=== PATIENT | female | born 1975 | race Two or more races ===

== ENCOUNTER → 2024-10-03 | Outpatient (CLI) | payer OTHER, SELFPAY ==
[2024-10-03 08:46] LABS: Basophils % (Auto) 0 % (0-2.5); Eosinophils # (Auto) 0.1 Thou/mm3 (0.0-0.5); Eosinophils % (Auto) 3 % (0-10); Hematocrit 39.6 % (36.0-46.0); Hemoglobin 13.9 g/dL (12.0-16.0); Immature Granulocytes % (Auto) 0 % (0-0); Immature Granulocytes Auto 0.01 Thou/mm3 (0.00-0.00); Lymphocytes % (Auto) 26 % (10-50); Mean Corpuscular HGB Conc 35.1 g/dl (31.0-37.0); Mean Corpuscular Hemoglobin 30.7 pg (25.0-35.0); Mean Corpuscular Volume 87 fL (80-100); Monocytes # (Auto) 0.6 Thou/mm3 (0.0-0.8); Monocytes % (Auto) 16 % (0-12); Neutrophils # (Auto) 2.1 Thou/mm3 (1.8-7.7); Neutrophils % (Auto) 55 % (37-80); Nucleated Red Blood Cell % 0 /100 WBC (0); Platelet Count 278 Thou/mm3 (140-440); RDW Standard Deviation 40.8 fL (36.4-46.3); Red Blood Count 4.53 Miln/mm3 (4.00-5.20); White Blood Count 3.7 Thou/mm3 (3.6-11.0)
[2024-10-05 23:36] LABS: CD19 Percentage 19 % (6-29); CD19, Absolute 212 cells/uL (110-660); CD3 Percentage 56 % (57-85); CD3, Absolute 626 cells/uL (840-3060); CD3-CD16+CD56+ % 24 % (4-25); CD3-CD16+CD56+ (Abs) 279 cells/uL (70-760); CD4 Percentage 37 % (30-61); CD4, Absolute 414 cells/uL (490-1740); CD4/CD8 Ratio 2.06 (0.86-5.00); CD8 Percentage 18 % (12-42); CD8, Absolute 201 cells/uL (180-1170)
[2024-10-06 07:40] LABS: Lymphocytes, Absolute 1125 cells/uL (850-3900)
== END | disposition home or self-care (01) ==
LOC: COPL 06:49
PROVIDERS: PCP Family Medicine; Referring Provider Psychiatry & Neurology Neurology; Visit Provider Psychiatry & Neurology Neurology
DX: G35 Multiple sclerosis (principal)
CPT/HCPCS: 36415; 85025; 86355; 86357; 86359; 86360

== ENCOUNTER → 2025-01-02 | Outpatient (CLI) | payer OTHER, SELFPAY ==
[2025-01-02 13:17] LABS: Basophils # (Auto) 0.0 Thou/mm3 (0.0-0.2); Basophils % (Auto) 0 % (0-2.5); Eosinophils # (Auto) 0.1 Thou/mm3 (0.0-0.5); Eosinophils % (Auto) 2 % (0-10); Hematocrit 36.7 % (36.0-46.0); Hemoglobin 12.4 g/dL (12.0-16.0); Immature Granulocytes Auto 0.02 Thou/mm3 (0.00-0.00); Lymphocytes # (Auto) 0.9 Thou/mm3 (1.0-4.8); Lymphocytes % (Auto) 19 % (10-50); Mean Corpuscular HGB Conc 33.8 g/dl (31.0-37.0); Mean Corpuscular Hemoglobin 30.7 pg (25.0-35.0); Mean Corpuscular Volume 91 fL (80-100); Monocytes # (Auto) 0.6 Thou/mm3 (0.0-0.8); Monocytes % (Auto) 13 % (0-12); Neutrophils # (Auto) 3.2 Thou/mm3 (1.8-7.7); Neutrophils % (Auto) 65 % (37-80); Nucleated Red Blood Cell # 0.00 Thou/mm3 (0.00-0.00); Nucleated Red Blood Cell % 0 /100 WBC (0); Platelet Count 306 Thou/mm3 (140-440); RDW Standard Deviation 44.6 fL (36.4-46.3); Red Blood Count 4.04 Miln/mm3 (4.00-5.20); White Blood Count 4.9 Thou/mm3 (3.6-11.0)
[2025-01-04 22:04] LABS: CD19 Percentage 17 % (6-29); CD19, Absolute 172 cells/uL (110-660); CD3 Percentage 63 % (57-85); CD3, Absolute 625 cells/uL (840-3060); CD3-CD16+CD56+ % 19 % (4-25); CD3-CD16+CD56+ (Abs) 189 cells/uL (70-760); CD4 Percentage 45 % (30-61); CD4, Absolute 440 cells/uL (490-1740); CD4/CD8 Ratio 2.42 (0.86-5.00); CD8 Percentage 19 % (12-42); CD8, Absolute 181 cells/uL (180-1170)
[2025-01-06 07:08] LABS: Lymphocytes, Absolute 990 cells/uL (850-3900)
== END | disposition home or self-care (01) ==
LOC: COPL 12:12
PROVIDERS: PCP Family Medicine; Referring Provider Psychiatry & Neurology Neurology; Visit Provider Psychiatry & Neurology Neurology
DX: G35 Multiple sclerosis (principal)
CPT/HCPCS: 36415; 85025; 86355; 86357; 86359; 86360